=== PATIENT | female | born 1985 | race Caucasian/White ===

== ENCOUNTER → 2018-03-25 | Outpatient (CLI) | payer BC ==
--- NOTE | 2018-03-26 07:03 | Diagnostic Imaging Report ---
EXAMINATION: MRI of the lumbar spine without contrast HISTORY: L back pain radiating to the right lower extremity with numbness and weakness after heavy lifting for the last 5 months COMPARISON: None. TECHNIQUE: Sagittal T1, T2, STIR; axial T2 and proton density. FINDINGS: It is assumed that there are 5 lumbar vertebrae. Curvature/Alignment: Normal lordosis. Vertebrae: No evidence of recent fracture, infection, or neoplasm. Conus: Normal, terminating at L1-L2 Cauda equina: Unremarkable. Lower thoracic: Unremarkable. Paraspinal soft tissues: Unremarkable. Degenerative changes: L1-L2: Unremarkable. L2-L3: Unremarkable. L3-L4: Unremarkable. L4-L5: Mild asymmetric to left disc below. Minimal left foraminal narrowing, no neurocompression. L5-S1: Small approximately 4 mm AP diameter right subarticular inferiorly migrated disc herniation, which is partially effacing the right lateral recess, with compression of the traversing right S1 nerve root and the right ventral thecal sac. IMPRESSION: 1. Small right subarticular inferiorly migrated disc herniation at L5-S1 is compressing the right S1 nerve root and likely explains the patient's symptoms. 2. Minimal degenerative changes of the disc at L4-L5 without stenosis or nerve root compression. Signed by: Dr. Chantell Eden M.D. on 03/26/2018 7:00 AM
== END ==
LOC: MRI 09:54
PROVIDERS: ATTEND Family Medicine
DX: M54.31 Sciatica, right side (principal); M51.26 Other intervertebral disc displacement, lumbar region
CPT/HCPCS: 72148